=== PATIENT | male | born 1970 | race Caucasian/White ===

== ENCOUNTER → 2023-06-30 06:36 | Day surgery (SDC) | payer OTHER, SELFPAY | LOC: GI 06:36 | PROVIDERS: ATTENDING PHYSICIAN Internal Medicine Gastroenterology | DX: Z12.11 Encounter for screening for malignant neoplasm of colon (principal); K63.89 Other specified diseases of intestine; K64.8 Other hemorrhoids; K22.70 Barrett's esophagus without dysplasia; K22.89 Other specified disease of esophagus; R12 Heartburn | CPT/HCPCS: 45380; 43239; 88305 ==